=== PATIENT | male | born 1990 | race Caucasian/White ===

== ENCOUNTER 2016-03-23 22:16 | Emergency (ER) | payer OTHER ==
[~2016-03-23] VITALS: Ht 167.6 cm; Wt 66.0 kg
[2016-03-23 22:27] VITALS: Ht 167.6 cm; Wt 66.0 kg
[2016-03-23 23:30] LABS: BASOPHILS % 0.5 % (0.0-2.0); EOSINOPHILS # 0.2 10^3/ul (0.0-0.5); EOSINOPHILS % 1.7 % (0.0-7.0); HEMATOCRIT 40.6 % (42.0-52.0); LYMPHOCYTES # 3.3 10^3/ul (0.8-2.9); MEAN CORPUSCULAR HEMOGLOBIN 31.2 pg (29.0-33.0); MEAN CORPUSCULAR HGB CONC 34.5 g/dl (32.0-37.0); MEAN CORPUSCULAR VOLUME 90.5 fl (82.0-101.0); MEAN PLATELET VOLUME 10.4 fl (7.4-10.4); MONOCYTE # 0.8 10^3/ul (0.3-0.9); MONOCYTES % 8.3 % (0.0-11.0); NEUTROPHIL # 5.1 10^3/ul (1.6-7.5); NEUTROPHILS % 54.5 % (39.0-77.0); PLATELET COUNT 204 10^3/UL (140-440); RED BLOOD COUNT 4.48 10^6/ul (4.70-6.10); RED CELL DISTRIBUTION WIDTH 13.9 % (11.5-14.5); UNCORRECTED WBC 9.4 10^3/ul (4.8-10.8); WHITE BLOOD COUNT 9.4 10^3/ul (4.8-10.8)
[2016-03-23 23:31] LABS: CONDITION 1
[2016-03-24 00:05] LABS: CHLORIDE 103 mmol/L (97-110)
[2016-03-24 00:06] LABS: POTASSIUM 3.4 mmol/L (3.5-5.1); SODIUM 143 mmol/L (135-144)
[2016-03-24 00:08] LABS: ALBUMIN/GLOBULIN RATIO 1.37; ALKALINE PHOSPHATASE 66 IU/L (42-121); ANION GAP 15 (8-16); ASPARTATE AMINO TRANSFERASE 54 IU/L (15-46); BILIRUBIN,INDIRECT 0.2 mg/dl (0-1.1); BILIRUBIN,TOTAL 0.2 mg/dl (0.2-1.3); BLOOD UREA NITROGEN 25 mg/dl (7-20); CARBON DIOXIDE 28 mmol/L (21-31); CREATININE 0.81 mg/dl (0.61-1.24); GLUCOSE 94 mg/dl (70-220); TOTAL PROTEIN 6.9 g/dl (6.1-8.1)
[2016-03-24 00:09] LABS: ALANINE AMINOTRANSFERASE 70 IU/L (13-69)
[2016-03-24 00:56] LABS: ACETAMINOPHEN < 10.0 ug/ml (10.0-30.0); ETHANOL < 10.0 mg/dl; SALICYLATE < 1.0 mg/dl (5.0-30.0)
[2016-03-24 00:57] LABS: BARBITURATES NEGATIVE (NEGATIVE); BENZODIAZEPINES NEGATIVE (NEGATIVE); CANNABINOIDS NEGATIVE (NEGATIVE); COCAINE NEGATIVE (NEGATIVE); OPIATES NEGATIVE (NEGATIVE)
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
[2016-03-24] MEDS ORDERED: DIPHENHYDRAMINE 50 MG INJ IM ONE (04:30)
[2016-03-24] MEDS ORDERED: LORAZEPAM 2 MG INJ IM ONE (04:30)
[2016-03-24] MEDS ORDERED: HALOPERIDOL 5 MG INJ IM ONE (04:30)
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
--- NOTE | 2016-03-25 11:43 | QN ---
Documentation Comment Observation Note: Time: 4 hours Family Hx: Negative for diabetes Evaluation: Multiple exams showed improving symptoms and no evidence of clinical decompensation. Repeat tele-psych evaluation has been ordered to see if the patient continues the need for his 5150 hold. FRANCIE HERNANDEZ MD Mar 25, 2016 11:43
[2016-03-25 14:46] VITALS: BP 101/60; PULSE 93; RESP 16; TEMP 97.3
== END 2016-03-25 15:48 ==
LOC: E/R 22:16
DX: F29 Unspecified psychosis not due to a substance or known physiological condition (principal); R40.2132 Coma scale, eyes open, to sound, at arrival to emergency department; R40.2362 Coma scale, best motor response, obeys commands, at arrival to emergency department; R45.850 Homicidal ideations; F17.210 Nicotine dependence, cigarettes, uncomplicated
CPT/HCPCS: 36415; 80053; 80306; 80307; 85025; 96372; J1200; J1630; J2060; Z7502

== ENCOUNTER 2016-05-19 16:45 | Emergency (ER) | payer OTHER ==
[~2016-05-19] VITALS: Ht 167.6 cm; Wt 59.1 kg
[2016-05-19 16:47] VITALS: Ht 167.6 cm; Wt 59.1 kg
[2016-05-19] MEDS ORDERED: LORAZEPAM 1 MG TAB PO ONE ×2 (17:30→21:00)
[2016-05-19 17:56] LABS: ADD SCAN DIFF NO
[2016-05-19 17:59] LABS: BASOPHIL # 0.1 10^3/ul (0.0-0.1); BASOPHILS % 0.5 % (0.0-2.0); EOSINOPHILS # 0.1 10^3/ul (0.0-0.5); EOSINOPHILS % 0.7 % (0.0-7.0); HEMOGLOBIN 14.6 g/dl (14.0-18.0); LYMPHOCYTES # 2.8 10^3/ul (0.8-2.9); LYMPHOCYTES % 22.4 % (15.0-51.0); MEAN CORPUSCULAR HEMOGLOBIN 31.5 pg (29.0-33.0); MEAN CORPUSCULAR HGB CONC 33.2 g/dl (32.0-37.0); MEAN CORPUSCULAR VOLUME 94.8 fl (82.0-101.0); MEAN PLATELET VOLUME 11.3 fl (7.4-10.4); MONOCYTES % 8.3 % (0.0-11.0); NEUTROPHIL # 8.3 10^3/ul (1.6-7.5); NEUTROPHILS % 67.9 % (39.0-77.0); PLATELET COUNT 269 10^3/UL (140-415); RED BLOOD COUNT 4.64 10^6/ul (4.70-6.10); RED CELL DISTRIBUTION WIDTH 14.6 % (11.5-14.5); WHITE BLOOD COUNT 12.3 10^3/ul (4.8-10.8)
[2016-05-19 18:11] LABS: ALBUMIN 5.2 g/dl (3.3-4.9)
[2016-05-19 18:12] LABS: CHLORIDE 97 mmol/L (97-110); POTASSIUM 3.8 mmol/L (3.5-5.1); SODIUM 143 mmol/L (135-144)
[2016-05-19 18:14] LABS: ALKALINE PHOSPHATASE 78 IU/L (42-121); ANION GAP 21 (8-16); ASPARTATE AMINO TRANSFERASE 69 IU/L (15-46); BILIRUBIN,INDIRECT 0.6 mg/dl (0-1.1); BILIRUBIN,TOTAL 0.6 mg/dl (0.2-1.3); BLOOD UREA NITROGEN 40 mg/dl (7-20); CARBON DIOXIDE 29 mmol/L (21-31); CREATININE 0.93 mg/dl (0.61-1.24); TOTAL PROTEIN 8.9 g/dl (6.1-8.1)
[2016-05-19 18:15] LABS: ALANINE AMINOTRANSFERASE 259 IU/L (13-69); CALCIUM 9.7 mg/dl (8.4-10.2); GLUCOSE 108 mg/dl (70-220)
[2016-05-19 18:19] LABS: ETHANOL < 10.0 mg/dl
[2016-05-19] MEDS ORDERED: SOD CHLORIDE 0.9% 1,000 ML IV ONE (19:27)
--- NOTE | 2016-05-19 22:26 | ERD ---
ER Documentation Chief Complaint Date/Time DATE: 05/19/16 TIME: 22:14 Chief Complaint BROUGHT IN VIA EMS AND [employer] DUE TO SUSPECTED METH USE HPI 25-year-old male brought in by EMS from [facility] after acting confused. He was reportedly doing meth before he went into [facility]. He has been talking to himself since they picked him up. He does admit to using meth. He has no complaints at this time. ROS History is limited secondary to intoxication PMhx/Soc Medical and Surgical Hx: Unable to obtain Hx Alcohol Use: Yes Hx Substance Use: Yes (METH) Hx Tobacco Use: No Smoking Status: Unknown if ever smoked FmHx Family History: other (Unable to obtain) Physical Exam Vitals Vital Signs Date Time Temp Pulse Resp B/P Pulse Ox O2 Delivery O2 Flow Rate FiO2 05/19/16 18:35 98.3 115 22 135/95 100 Room Air 05/19/16 16:47 97.9 122 18 141/81 96 Physical Exam Const: No apparent distress, nontoxic, talking to himself, cursing Head: Atraumatic Eyes: Normal Conjunctiva ENT: Normal External Ears, Nose and Mouth. Neck: Full range of motion. No meningismus. Resp: Clear to auscultation bilaterally Cardio: Tachycardic with regular rhythm, no murmurs Abd: Soft, non tender, non distended. Normal bowel sounds Skin: No petechiae or rashes Back: No midline or flank tenderness Ext: No cyanosis, or edema Neur: Awake and alert Psych: Normal Mood and Affect Psych: Appearance: Disheveled M/S: Alert, not oriented Mood/Affect: Anxious, hyperactive Speech: Pressured Insight: Poor Hallucinations: Unclear, but talking to people that are not there SI or HI: None Result Diagram: 05/19/16 17405/19/16 1740 Results 24 hrs Laboratory Tests Test 05/19/16 17:40 White Blood Count 12.310^3/ul Red Blood Count 4.6410^6/ul Hemoglobin 14.6g/dl Hematocrit 44.0% Mean Corpuscular Volume 94.8fl Mean Corpuscular Hemoglobin 31.5pg Mean Corpuscular Hemoglobin Concent 33.2g/dl Red Cell Distribution Width 14.6% Platelet Count 28264^3/UL Mean Platelet Volume 11.3fl Neutrophils % 67.9% Lymphocytes % 22.4% Monocytes % 8.3% Eosinophils % 0.7% Basophils % 0.5% Nucleated Red Blood Cells % 0.0/100WBC Neutrophils # 8.310^3/ul Lymphocytes # 2.810^3/ul Monocytes # 1.010^3/ul Eosinophils # 0.110^3/ul Basophils # 0.110^3/ul Nucleated Red Blood Cells # 0.010^3/ul Sodium Level 143mmol/L Potassium Level 3.8mmol/L Chloride Level 97mmol/L Carbon Dioxide Level 29mmol/L Anion Gap 21 Blood Urea Nitrogen 40mg/dl Creatinine 0.93mg/dl Glucose Level 108mg/dl Calcium Level 9.7mg/dl Total Bilirubin 0.6mg/dl Direct Bilirubin 0.00mg/dl Indirect Bilirubin 0.6mg/dl Aspartate Amino Transf (AST/SGOT) 69IU/L Alanine Aminotransferase (ALT/SGPT) 259IU/L Alkaline Phosphatase 78IU/L Total Protein 8.9g/dl Albumin 5.2g/dl Globulin 3.70g/dl Albumin/Globulin Ratio 1.40 Ethyl Alcohol Level < 10.0mg/dl Current Medications Medications (Trade) Dose Ordered Sig/Lisa Route PRN Reason Start Time Stop Time Status Last Admin Dose Admin Lorazepam 1 mg 1 mg ONCE ONCE PO 05/19/16 17:30 05/19/16 17:31 DC 05/19/16 17:22 Sodium Chloride (NS) 1,000 ml @ 1,000 mls/hr Q1H ONCE IV 05/19/16 19:27 05/19/16 19:53 DC Lorazepam (Ativan) 1 mg ONCE ONCE PO 05/19/16 21:00 05/19/16 21:01 DC 05/19/16 21:00 Procedures/MDM Patient is presenting with altered mental status and what seems like hallucinations. This may be drug-induced. His vitals were notable for tachycardia. Have a lower suspicion for an acute psychosis secondary to mental health problem. Patient was given Ativan. Labs were notable for an elevated BUN, likely secondary to dehydration. Oral hydration was started. His labs are also notable for transaminitis, however there is no evidence of acute surgical abdomen. I believe this can be worked up as an outpatient. Patient was tolerating food and fluids by mouth. I do not suspect acute intracranial infection or bleeding. No evidence of sepsis. Patient was observed in the ED for almost 6 hours with some improvement in his mental status but still very agitated and unable to be discharged at this time. He will continued to be observed in the ED until he abdullahi up. The oncoming ED physician, Dr. Abarca, will take over his care. He will evaluate the patient once he is more sober to see if he needs any psychiatric evaluation. Departure Diagnosis: Primary Impression: Drug abuse Additional Impression: Altered mental status Altered mental status type: unspecified Qualified Code: R41.82 - Altered mental status, unspecified altered mental status type Condition: ELVIRA Fan MD May 19, 2016 22:25
[2016-05-20] MEDS ORDERED: BUPR300T48 PO (07:22)
[2016-05-20] MEDS ORDERED: ALPR1TAB2 PO (07:22)
[2016-05-20] MEDS ORDERED: VENL100T PO (07:22)
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
[2016-05-20 08:21] LABS: ADD UMIC NO; URINE BILIRUBIN (Dip) NEGATIVE (NEGATIVE); URINE BLOOD (Dip) NEGATIVE (NEGATIVE); URINE COLOR LT. YELLOW (YELLOW); URINE GLUCOSE (Dip) NEGATIVE (NEGATIVE); URINE KETONES (Dip) NEGATIVE (NEGATIVE); URINE LEUKOCYTE ESTERASE (Dip) NEGATIVE (NEGATIVE); URINE NITRITE (Dip) NEGATIVE (NEGATIVE); URINE TOTAL PROTEIN (Dip) NEGATIVE (NEGATIVE); URINE UROBILINOGEN (Dip) 0.2 E.U./dL (0.1-1.0)
[2016-05-20 08:55] LABS: BENZODIAZEPINES Negative (NEGATIVE)
[2016-05-20 08:57] LABS: BARBITURATES Negative (NEGATIVE)
[2016-05-20 08:58] LABS: CANNABINOIDS Negative (NEGATIVE); COCAINE Negative (NEGATIVE)
[2016-05-20 08:59] LABS: OPIATES Negative (NEGATIVE)
--- NOTE | 2016-05-20 13:28 | PSY ---
Date/Time of Note Date/Time of Note DATE: 05/20/16 TIME: 13:26 Psychiatric Subjective Eval Subjective Evaluation Patient location: emergency Chief Complaint: BROUGHT IN VIA EMS AND [employer] DUE TO SUSPECTED METH USE Reason for consult: Psychosis History of present illness RE-EVAL REQUESTED BECAUSE "PT DENIES SI" 25 yo homeless male seen by Dr Ann, 5150 for gd was recommended. pt is disorganized and delusional, not able to plan for food, custodial and clothing, speaks in word salad. Medical history Problems Medical Problems: (1) Altered mental status Status: Acute (2) Drug abuse Status: Acute (3) Homicidal behavior Status: Acute (4) Psychosis Status: Acute Allergies: Coded Allergies: No Known Allergy (Unverified , 03/23/16) Social History Marital status: other Occupation/Long Term: Unable to assess as pt was not able to fully participate in interSailogyw. Psychiatric Objective Eval Mental Status Examination: Psychomotor Activity: Agitated Behavior: Bizarre Speech: Pressured, Disorganized AFFECT: Libile Mood: Irritable Though Process: Loose, Tangential Thought Content: Delusions Suicidal: No Homicidal: No Orientation: x2 Cognition: Alert Insight: Impared Judgement: Impared Laboratory Results Laboratory Tests Test 05/19/16 08:10 05/19/16 17:40 Urine Color LT. YELLOW Urine Clarity CLEAR Urine pH 5.5 Urine Specific [place] >=1.030 Urine Ketones NEGATIVE Urine Nitrite NEGATIVE Urine Bilirubin NEGATIVE Urine Urobilinogen 0.2 E.U./dL Urine Leukocyte Esterase NEGATIVE Urine Hemoglobin NEGATIVE Urine Glucose NEGATIVE% Urine Total Protein NEGATIVE Urine Opiates Screen Negative Urine Barbiturates Negative Urine Amphetamines Screen POSITIVE Urine Benzodiazepines Screen Negative Urine Cocaine Screen Negative Urine Cannabinoids Negative White Blood Count 12.310^3/ul Red Blood Count 4.6410^6/ul Hemoglobin 14.6g/dl Hematocrit 44.0% Mean Corpuscular Volume 94.8fl Mean Corpuscular Hemoglobin 31.5pg Mean Corpuscular Hemoglobin Concent 33.2g/dl Red Cell Distribution Width 14.6% Platelet Count 56857^3/UL Mean Platelet Volume 11.3fl Neutrophils % 67.9% Lymphocytes % 22.4% Monocytes % 8.3% Eosinophils % 0.7% Basophils % 0.5% Nucleated Red Blood Cells % 0.0/100WBC Neutrophils # 8.310^3/ul Lymphocytes # 2.810^3/ul Monocytes # 1.010^3/ul Eosinophils # 0.110^3/ul Basophils # 0.110^3/ul Nucleated Red Blood Cells # 0.010^3/ul Sodium Level 143mmol/L Potassium Level 3.8mmol/L Chloride Level 97mmol/L Carbon Dioxide Level 29mmol/L Anion Gap 21 Blood Urea Nitrogen 40mg/dl Creatinine 0.93mg/dl Glucose Level 108mg/dl Calcium Level 9.7mg/dl Total Bilirubin 0.6mg/dl Direct Bilirubin 0.00mg/dl Indirect Bilirubin 0.6mg/dl Aspartate Amino Transf (AST/SGOT) 69IU/L Alanine Aminotransferase (ALT/SGPT) 259IU/L Alkaline Phosphatase 78IU/L Total Protein 8.9g/dl Albumin 5.2g/dl Globulin 3.70g/dl Albumin/Globulin Ratio 1.40 Ethyl Alcohol Level < 10.0mg/dl Assessment and Plan Assessment/Diagnosis [place] I: psychosis nos [place] II: defered Recommendation/Plan Medication Management zyprexa 10 mg + ativan 2 mg po /im prn q 12 agitation Follow-up/Disposition 5150 for gd; [facility]. 5150 Recommendation: Continue Hold CATRINA ARAUJO MD May 20, 2016 13:28
[2016-05-20 19:06] VITALS: BP 136/78; PULSE 97; RESP 19; TEMP 98
== END 2016-05-20 20:21 ==
LOC: E/R 16:45 → MERGE 16:45 → EDBD 16:45 → E/R 05-20 20:21
DX: F15.10 Other stimulant abuse, uncomplicated (principal); R41.82 Altered mental status, unspecified
CPT/HCPCS: 80053; 80306; 80307; 81003; 85025; Z7610; 99285; J7030